=== PATIENT | male | born 1980 | race Caucasian/White ===

== ENCOUNTER 2020-02-01 08:01 | Emergency (ER) | payer BC ==
[2020-02-01 08:11] VITALS: BP 140/82
--- NOTE | 2020-02-01 08:12 | UC ---
General HPI - HPI Summary HPI Summary: 39yo male presenting with tick bite of left chest wall. Patient states he believes he must have gotten it while playing with his kid outside yesterday. States it was not engorged. States he removed the body this morning but the head is still attached. Denies pain. Denies drainage and bleeding. Denies fever and chills. - History of Current Complaint Stated Complaint: TICK Hx Obtained From: Patient Pain Intensity: 0 - Allergy/Home Medications Allergies/Adverse Reactions: Allergies Allergy/AdvReac Type Severity Reaction Status Date / Time bacitracin Allergy Swelling Verified 02/01/20 08:09 [From Neosporin Of ([id number])] Face,Lips,& Throat neomycin Allergy Swelling Verified 02/01/20 08:09 [From Neosporin Of ([id number])] Face,Lips,& Throat polymyxin B Allergy Swelling Verified 02/01/20 08:09 [From Neosporin Of ([id number])] Face,Lips,& Throat Home Medications: Home Medications Ibuprofen TAB* [Advil TAB*] 800 mg PO ONCE 11/07/12 [History Confirmed 03/03/17] Acetaminophen [Eq Pain Reliever] 1,300 mg PO TID PRN 03/03/17 [History Confirmed 03/03/17] Ciproflox/Dexameth OTIC.SUSP* [Ciprodex OTIC.SUSP*] 4 drop LEFT EAR BID #1 btl 03/03/17 [Rx] PMH/Surg Hx/FS Hx/Imm Hx Previously Healthy: Yes - Surgical History Surgical History: None - Family History Known Family History: Positive: None, Non-Contributory - Social History Alcohol Use: None Substance Use Type: None Smoking Status (MU): Never Smoked Tobacco - Immunization History Most Recent Tetanus Shot: 2010 Review of Systems All Other Systems Reviewed And Are Negative: No Constitutional: Positive: Negative Skin: Positive: Other - tick bite left chest wall with head intact Respiratory: Positive: Negative Cardiovascular: Positive: Negative Gastrointestinal: Positive: Negative Musculoskeletal: Positive: Negative Neurological/Mental Status: Positive: Negative Physical Exam Triage Information Reviewed: Yes Appearance: Well-Appearing, No Pain Distress, Well-Nourished Vital Signs: Initial Vital Signs Temp 97.8 F 02/01/20 08:09 Pulse 67 04/06/20 08:09 Resp 18 02/01/20 08:09 BP 140/82 02/01/20 08:09 Pulse Ox 98 02/01/20 08:09 Vital Signs Reviewed: Yes Eyes: Positive: Conjunctiva Clear ENT: Positive: Hearing grossly normal Neck: Positive: Supple Respiratory: Positive: No respiratory distress, No accessory muscle use Cardiovascular Exam: Other - skin reflects adequate perfusion Neurological: Positive: Alert Psychological: Positive: Age Appropriate Behavior Skin: Positive: Other - small 5mm area of erythema with tick head still attached in center, no TTP, no drainage Course/Dx - Course Course Of Treatment: I was able to remove the entire head of the tick using splinter forceps. The patient states the tick was on less than 36 hours and not engorged so no further treatment was necessary at this time. Educated on s/s of infection and instructed to monitor the area for the next few days. Educated on lyme disease and instructed to follow up with pcp if he experiences any new symptoms. Patient voiced understanding and agreed with treatment plan. - Diagnoses Provider Diagnosis: Tick bite of left side of chest wall Discharge ED - Sign-Out/Discharge Documenting (check all that apply): Patient Departure All imaging exams completed and their final reports reviewed: No Studies - Discharge Plan Condition: Stable Disposition: HOME Patient Education Materials: Tick Bite (ED) Referrals: No Primary Care Phys,NOPCP [Primary Care Provider] - Additional Instructions: No further treatment is required for your tick bite at this time. Monitor the area for the next few days for signs of infection that were discussed today. Follow up with your PCP if you experience a rash where you were the tick bit you within the next month. Return or go to the emergency room if you experience fever, nausea and vomiting , or increasing redness, warmth, or drainage from the area. - Billing Disposition and Condition Condition: STABLE Disposition: Home - Attestation Statements Provider Attestation: This patient was not seen by me. I was available for consult. Chart reviewed. MONSTER
== END 2020-02-01 08:33 | disposition home or self-care (01) ==
LOC: UCCORT 08:01
DX: S20.362A Insect bite (nonvenomous) of left front wall of thorax, initial encounter (principal); W57.XXXA Bitten or stung by nonvenomous insect and other nonvenomous arthropods, initial encounter; Y92.9 Unspecified place or not applicable; Z88.3 Allergy status to other anti-infective agents
CPT/HCPCS: 99211; G0463